=== PATIENT | male | born 1960 | race African-American/Black ===

== ENCOUNTER → 2016-04-06 | Outpatient (CLI) | payer OTHER ==
[2016-03-08 12:38] VITALS: BP 158/99
[~2016-04-06] MED LIST: ASPI81TA2 PO; LIRA0.6P2 SQ; METF500T4 PO
--- NOTE | 2016-04-06 10:24 | CARD ---
APPROVED REPORT EXAM: Two-dimensional and M-mode echocardiogram with Doppler and color Doppler. Other Information Quality : Good INDICATION Dyspnea 2D DIMENSIONS RVDd3.3 (2.9-3.5cm)Left Atrium(2D)4.4 (1.6-4.0cm) IVSd1.6 (0.7-1.1cm)Aortic Root(2D)3.0 (2.0-3.7cm) LVDd4.4 (3.9-5.9cm)LVOT Diameter2.2 (1.8-2.4cm) PWd1.3 (0.7-1.1cm)LVDs3.0 (2.5-4.0cm) FS (%) 32.0 %SV54.0 ml LVEF(%)60.3 (>50%) Aortic Valve AoV [place].108.9cm/sAoV VTI17.7cm AO Peak GR.4.7mmHgLVOT [place].90.8cm/s AO Mean GR.2mmHgAVA (VMAX)3.28cm2 SAVANNAH (VTI)3.70cm2 Mitral Valve MV E Lxtdeftd01.3cm/sMV DECEL QZTL344xr MV A Aauhjher62.2cm/sE/A Ratio1.5 Pulmonary Vein S1 Iimohyqn66.3cm/sD2 Mchopnjy26.5cm/s PVa nhokrcxd19ksws LEFT VENTRICLE The left ventricle is normal size. There is normal left ventricular wall thickness. The left ventricu lar systolic function is normal and the ejection fraction is within normal range. The Ejection Fracti on is 55-60%. There is normal LV segmental wall motion. Transmitral Doppler flow pattern is Grade I-a bnormal relaxation pattern. RIGHT VENTRICLE The right ventricle is normal size. The right ventricular systolic function is normal. ATRIA The left atrium is mildly dilated. The right atrium size is normal. The interatrial septum is intact with no evidence for an atrial septal defect or patent foramen ovale as noted on 2-D or Doppler imagi ng. AORTIC VALVE The aortic valve is normal in structure and function. Doppler and Color Flow revealed trace aortic re gurgitation. There is no significant aortic valvular stenosis. MITRAL VALVE The mitral valve is normal in structure and function. There is no evidence of mitral valve prolapse. There is no mitral valve stenosis. Doppler and Color Flow revealed no mitral valve regurgitation note d. TRICUSPID VALVE The tricuspid valve is normal in structure and function. Doppler and Color Flow revealed no tricuspid valve regurgitation noted. There is no tricuspid valve stenosis. PULMONIC VALVE Doppler and Color Flow revealed trace pulmonic valvular regurgitation. There is no pulmonic valvular stenosis. GREAT VESSELS The aortic root is normal in size. The ascending aorta is normal in size. The IVC was not visualized. PERICARDIAL EFFUSION There is no evidence of significant pericardial effusion. Critical Notification Critical Value: No <Conclusion> The left ventricular systolic function is normal and the ejection fraction is within normal range. Th e Ejection Fraction is 55-60%. There is normal LV segmental wall motion. Transmitral Doppler flow pattern is Grade I-abnormal relaxation pattern.
== END | disposition home or self-care (01) ==
LOC: ECHO 08:59
PROVIDERS: ATTEND Internal Medicine Cardiovascular Disease
DX: R06.09 Other forms of dyspnea (principal)
CPT/HCPCS: 93306

== ENCOUNTER 2016-04-16 06:19 | Outpatient (CLI) | payer OTHER ==
[2016-04-16] VITALS (11 sets, daily range): BP systolic 122–187; BP diastolic 74–108
[~2016-04-16] VITALS: Ht 185.4 cm; Wt 125.2 kg
[2016-04-16] MEDS ORDERED: LIDOCAINE 2% 20 ML VIAL. ONE (07:06)
[2016-04-16] MEDS ORDERED: HEPARIN for ARTERIAL LINE 1,500 ML ONE (07:06)
[2016-04-16] MEDS ORDERED: IODIXANOL 320 MG/ML 100 ML VIAL. ONE (07:06)
[2016-04-16 07:07] LABS: HEMATOCRIT 46.1 % (39.0-53.0); HEMOGLOBIN 15.8 g/dL (13.0-17.5); RED BLOOD COUNT 5.82 x10^6/uL (4.30-5.70); RED CELL DISTRIBUTION WIDTH 15.2 % (11.5-14.5)
[2016-04-16 07:18] LABS: INR 1.1 (0.8-1.1); PROTHROMBIN TIME PATIENT 13.9 SEC (11.7-14.0)
[2016-04-16 07:55] LABS: CALCIUM 8.2 mg/dL (8.5-10.1); CREATININE 1.3 mg/dL (0.7-1.3); GFR 69.1; POTASSIUM 3.7 mmol/L (3.5-5.1)
[2016-04-16] MEDS ORDERED: FENTANYL PF 250 MCG/5 ML VIAL. ONE (08:31)
[2016-04-16] MEDS ORDERED: MIDAZOLAM HCL/PF 5 MG/5 ML VIAL ONE (08:31)
[2016-04-16] MEDS ORDERED: VERAPAMIL 5 MG/2 ML VIAL. ONE (08:31)
[2016-04-16] MEDS ORDERED: NITROGLYCERIN 200 MCG/2 ML SYRINGE FOR CATH/VASC LAB. ONE (08:31)
[2016-04-16] MEDS ORDERED: HEPARIN for IV BOLUS 10,000 UNIT/10 ML VIAL. ONE (08:31)
[2016-04-16] MEDS ORDERED: CONTRAST GIVEN MC PRN (09:00)
[2016-04-16] MEDS ORDERED: MIDAZOLAM HCL/PF 5 MG/5 ML VIAL IV ONE (09:00)
[2016-04-16] MEDS ORDERED: FENTANYL PF 250 MCG/5 ML VIAL. IV ONE (09:00)
[2016-04-16] MEDS ORDERED: HEPARIN for IV BOLUS 10,000 UNIT/10 ML VIAL. IART ONE (09:00)
[2016-04-16] MEDS ORDERED: VERAPAMIL 5 MG/2 ML VIAL. IART ONE (09:00)
[2016-04-16] MEDS ORDERED: IODIXANOL 320 MG/ML 100 ML VIAL. IART ONE (09:00)
[2016-04-16] MEDS ORDERED: LIDOCAINE 2% 20 ML VIAL. IJ ONE (09:00)
[2016-04-16] MEDS ORDERED: NITROGLYCERIN 200 MCG/2 ML SYRINGE FOR CATH/VASC LAB. IART ONE (09:00)
[2016-04-16] MEDS ORDERED: IV 1/2 NORMAL SALINE 1,000 ML IV SCH (09:04)
--- NOTE | 2016-04-16 09:04 | PDOC ---
MODERATE SEDATION ASSESSMENT RISKS/ALTERNATIVES Risks/Alternatives Risks and alternatives of this type of sedation and procedure discussed with: RISK/ALTERNATIVES: Patient H & P ON CHART H & P H & P on chart and reviewed for co-morbid conditions and appropriate labs. H&P ON CHART: Yes STATUS PREG STATUS ASSESSED: N/A MEDS/ALLERGIES REVIEWED Meds/Allergies Reviewed Medications and Allergies including time and route of recently administered narcotics and sedatives. MEDS/ALLERGIES REVIEWED: Yes ASA RATING ASA RATING: II AIRWAY ASSESSMENT Airway Assessment Airway patency, oral function limitations, presence of caps, crowns, dentures, partials, and ability to extend neck assessed. AIRWAY ASSESSMENT: Yes MALLAMPATI SCORE MALLAMPATI SCORE: II PRE-SEDATION ASSESSMENT PRE-SEDATION ASSESSMENT: Yes SAYDA JOHNSON MD Apr 16, 2016 09:04
--- NOTE | 2016-04-16 09:18 | CARD ---
APPROVED REPORT Procedure(s) performed: Left heart catheterization, selective coronary angiography and left ventricul ography via the right transradial approach INDICATION The indication(s) include : Dyspnea on exertion and positive stress test concerning for unstable dimitrios na. PROCEDURE NARRATIVE After explaining the risks, benefits and alternative options, informed consent was obtained from surendra ent. Patient was brought to the cardiac Litigation Services Manager and right wrist was prepped and draped in the usual fashion after confirming a positive modified Wilfrid's test. Arterial access was obtained in the [facility] radial artery and a 6 [place] sheath was inserted. 6 [place] Jose catheter was used to perform chitra ective angiography of the left and right coronary arteries. 6 [place] pigtail catheter was used to pe rform left ventriculography. Patient tolerated the procedure well. Hemostasis was achieved using TR band. There were no immediate complications. The following findings were noted. FINDINGS 1. Hemodynamics: Left ventricular end-diastolic pressure of 11 mmHg. No pullback gradient across th e aortic valve. 2. Left ventriculography: Normal left ventricle systolic function with ejection fraction estimated at 65%. No significant mitral regurgitation seen. 3. Coronary angiography: a. The left main coronary artery arose from the left sinus of Valsalva, gave rise to the left anteri or descending and left circumflex arteries and did not show any significant stenosis. b. The left anterior descending artery did not show any significant stenosis. c. The left circumflex artery did not show any significant stenosis. d. The right coronary artery was a large and dominant vessel arising from the right sinus of Valsalv a that did not show any significant stenosis. Conclusion 1. No significant coronary artery disease 2. Normal left ventricle systolic function with ejection fraction estimated at 65% Recommendations Cardiac Risk Reduction Program
== END 2016-04-16 12:42 | disposition home or self-care (01) ==
LOC: CCL 06:19
PROVIDERS: ATTEND Internal Medicine Cardiovascular Disease
DX: I20.0 Unstable angina (principal); E78.00 Pure hypercholesterolemia, unspecified; I10 Essential (primary) hypertension
CPT/HCPCS: 36415; 80048; 85027; 85610; 85730; 93458; C1769; C1892; J2250; J3010; J3490

== ENCOUNTER → 2016-10-19 | Outpatient (CLI) | payer OTHER ==
[2016-04-16 11:44] VITALS: BP 129/74
[~2016-10-19] MED LIST changes: +ASPI-630 PO; -ASPI81TA2 PO
--- NOTE | 2016-10-20 16:51 | SLEEP ---
DATE OF STUDY: 10/19/2016 ATTENDING PHYSICIAN: Dr. Ravi Henriquez. OBJECTIVE: The patient is a 56-year-old female with a history of sleep apnea on a prior study done several years ago, here for CPAP titration. Date of study is 10/19/2016. Body mass index is 36. [place] sleep score 10. INTERPRETATION: Sleep architecture is characterized by sleep efficiency of 91% across the 6.8 hours of recording time. Stage volumes are appropriate for age. Sleep onset latency is 9 minutes. Respiratory monitoring shows a total of 83 events for an apnea-hypopnea index of 13.4 events per hour sleep. Minimum oxygen saturation is 89%. Treatment is initiated and excellent control of the respiratory events is achieved using 7 cm of CPAP Respironics medium DreamWear nasal pillows. No significant cardiac arrhythmias or periodic limb movements with sleep are observed. IMPRESSION: Abnormal polysomnogram showing obstructive sleep apnea and hypopnea treatable with the above settings. RECOMMENDATIONS: 1. The patient should be started on these settings. 2. Avoid sedatives and alcohol and pursue weight loss. Thank you for letting us help with the patient's care. GISELLE ORTIZ MD DR: NIYAH/madhu JOB#: [id number] / [id number] KIRSTEN Kureger MD
== END | disposition home or self-care (01) ==
LOC: SLPLAB 18:55
PROVIDERS: ATTEND Internal Medicine
DX: G47.30 Sleep apnea, unspecified (principal)
CPT/HCPCS: 95810

== ENCOUNTER → 2018-05-11 | Outpatient (CLI) | payer OTHER ==
[2016-04-16 11:44] VITALS: BP 129/74
[~2018-05-11] MED LIST changes: +METF500T16 PO; -METF500T4 PO
--- NOTE | 2018-05-11 09:11 | CARD ---
MR#: [id number] Date of Study: 05/11/2018 Ordering Physician: SAYDA JOHNSON, Referring Physician: SAYDA JOHNSON Tech: Mallorie Meyer RDCS APPROVED REPORT EXAM: Two-dimensional and M-mode echocardiogram with Doppler and color Doppler. Other Information Quality : GoodHR: 75bpm Rhythm : NSR INDICATION Hypertension/HCVD 2D DIMENSIONS RVDd3.1 (2.9-3.5cm)Left Atrium(2D)3.9 (1.6-4.0cm) IVSd1.5 (0.7-1.1cm)Aortic Root(2D)3.3 (2.0-3.7cm) LVDd3.9 (3.9-5.9cm)LVOT Diameter2.1 (1.8-2.4cm) PWd1.2 (0.7-1.1cm)LVDs2.4 (2.5-4.0cm) FS (%) 38.7 %SV46.4 ml LVEF(%)69.7 (>50%) M-Mode DIMENSIONS Left Atrium(MM)3.68 (2.5-4.0cm)Aortic Root3.37 (2.2-3.7cm) Aortic Valve AoV [place].100.3cm/sAoV VTI18.1cm AO Peak GR.4.0mmHgLVOT [place].77.6cm/s AO Mean GR.2mmHgAVA (VMAX)2.59cm2 SAVANNAH (VTI)2.60cm2 Mitral Valve MV E Tffpmcrs08.2cm/sMV DECEL SGEK494vf MV A Elvrzmfy26.5cm/sE/A Ratio1.5 MV A Stmkexeh955an Pulmonary Valve PV Peak Gqikieef219.4cm/s Tricuspid Valve TR P. Enqbdglw910fq/sRAP BDROMLDN3iuNs TR Peak Gr.9erAdXITA19sySu LEFT VENTRICLE The left ventricle is normal size. There is mild concentric left ventricular hypertrophy. The left ve ntricular systolic function is normal and the ejection fraction is within normal range. The Ejection Fraction is 60-65%. There is normal LV segmental wall motion. Transmitral Doppler flow pattern is Gra de II-pseudonormal filling dynamics. RIGHT VENTRICLE The right ventricle is normal size. There is normal right ventricular wall thickness. The right ventr icular systolic function is normal. ATRIA The left atrium size is normal. The right atrium size is normal. The interatrial septum is intact wit h no evidence for an atrial septal defect or patent foramen ovale as noted on 2-D or Doppler imaging. AORTIC VALVE The aortic valve is normal in structure and function. The aortic valve is trileaflet. Doppler and Col or Flow revealed no significant aortic regurgitation. There is no significant aortic valvular stenosi s. MITRAL VALVE The mitral valve is normal in structure and function. There is no evidence of mitral valve prolapse. There is no mitral valve stenosis. Doppler and Color Flow revealed no mitral valve regurgitation note d. TRICUSPID VALVE The tricuspid valve is normal in structure and function. Doppler and Color Flow revealed trace tricus pid regurgitation. The PA pressure was estimated at 12 mmHg. There is no tricuspid valve prolapse or vegetation. There is no tricuspid valve stenosis. PULMONIC VALVE Doppler and Color Flow revealed no pulmonic valvular regurgitation. There is no pulmonic valvular eloise nosis. GREAT VESSELS The aortic root is normal in size. The ascending aorta is normal in size. The IVC is normal in size a nd collapses >50% with inspiration. PERICARDIAL EFFUSION There is no evidence of significant pericardial effusion. Critical Notification Critical Value: No <Conclusion> The left ventricular systolic function is normal and the ejection fraction is within normal range. Th e Ejection Fraction is 60-65%. There is normal LV segmental wall motion. Signed by : Tung Aaron, Electronically Approved : 05/11/2018 09:11:18
== END | disposition home or self-care (01) ==
LOC: ECHO 08:06
PROVIDERS: ATTEND Internal Medicine Cardiovascular Disease
DX: I11.9 Hypertensive heart disease without heart failure (principal)
CPT/HCPCS: 93306

== ENCOUNTER → 2019-05-14 | Outpatient (CLI) | payer OTHER ==
[2016-04-16 11:44] VITALS: BP 129/74
--- NOTE | 2019-05-14 13:00 | CARD ---
MR#: [id number] Date of Study: 05/14/2019 Ordering Physician: SAYDA JOHNSON, Referring Physician: SAYDA JOHNSON, Tech: Celeste Saenz APPROVED REPORT EXAM: Two-dimensional and M-mode echocardiogram with Doppler and color Doppler. Other Information Quality : GoodHR: 74bpm INDICATION LV Function:Diastolic Chronic diastolic heart failure RISK FACTORS Hypertension Hyperlipidemia Diabetes 2D DIMENSIONS RVDd3.2 (2.9-3.5cm)Left Atrium(2D)3.6 (1.6-4.0cm) IVSd1.3 (0.7-1.1cm)Aortic Root(2D)3.2 (2.0-3.7cm) LVDd4.9 (3.9-5.9cm)LVOT Diameter2.2 (1.8-2.4cm) PWd1.1 (0.7-1.1cm)LVDs3.9 (2.5-4.0cm) FS (%) 20.5 %SV46.6 ml LVEF(%)41.8 (>50%) Aortic Valve AoV [place].121.7cm/sAoV VTI19.0cm AO Peak GR.5.9mmHgLVOT [place].98.5cm/s LVOT VTI 19.42cmAO Mean GR.3mmHg SAVANNAH (VMAX)2.57rj9XLV (VTI)3.88cm2 Mitral Valve MV E Rbxmryog98.5cm/sMV DECEL NZMD339ay MV A Dxfoakxm29.6cm/sMV E Mean Gr.1mmHg MV IEM62ygO/A Ratio1.3 MVA (PHT)4.99cm2 TDI E/Lateral E'7.4E/Medial E'8.2 Pulmonary Valve PV Peak Hcllbpeg26.0cm/sPV Peak Grad.3mmHg Tricuspid Valve TR P. Quxzprky696hz/sRAP TTURBIQG9yvVa TR Peak Gr.12kfIeMYJI65lpZf Pulmonary Vein S1 Iceqfmhe39.7cm/sD2 Djbbltbu48.9cm/s PVa bqbotnze019mtef LEFT VENTRICLE The left ventricle is normal size. There is mild concentric left ventricular hypertrophy. The left ve ntricular systolic function is normal and the ejection fraction is within normal range. The Ejection Fraction is 50-55%. There is normal LV segmental wall motion. Transmitral Doppler flow pattern is Gra de II-pseudonormal filling dynamics. RIGHT VENTRICLE The right ventricle is borderline dilated. The right ventricle is mildly hypertrophied. The right niraj tricular systolic function is normal. ATRIA The left atrium size is normal. The right atrium size is normal. The interatrial septum is intact wit h no evidence for an atrial septal defect or patent foramen ovale as noted on 2-D or Doppler imaging. AORTIC VALVE The aortic valve is normal in structure and function. Doppler and Color Flow revealed no significant aortic regurgitation. There is no significant aortic valvular stenosis. MITRAL VALVE The mitral valve is normal in structure and function. There is no evidence of mitral valve prolapse. There is no mitral valve stenosis. Doppler and Color-flow revealed trace mitral regurgitation. TRICUSPID VALVE The tricuspid valve is normal in structure and function. Doppler and Color Flow revealed trace tricus pid regurgitation with an estimated PAP of 25 mmHg. There is no tricuspid valve stenosis. PULMONIC VALVE The pulmonic valve is not well visualized. Doppler and Color Flow revealed no pulmonic valvular regur gitation. There is no pulmonic valvular stenosis. GREAT VESSELS The aortic root is normal in size. The ascending aorta is normal in size. The IVC was not visualized. PERICARDIAL EFFUSION There is no evidence of significant pericardial effusion. Critical Notification Critical Value: No <Conclusion> The left ventricular systolic function is normal and the ejection fraction is within normal range. Th e Ejection Fraction is 50-55%. There is normal LV segmental wall motion. Signed by : Tung Aaron, Electronically Approved : 05/14/2019 12:59:49
== END | disposition home or self-care (01) ==
LOC: ECHO 07:48
PROVIDERS: ATTEND Internal Medicine Cardiovascular Disease
DX: I50.32 Chronic diastolic (congestive) heart failure (principal); I51.7 Cardiomegaly
CPT/HCPCS: 93306

== ENCOUNTER → 2020-06-04 | Outpatient (CLI) | payer OTHER ==
[2016-04-16 11:44] VITALS: BP 129/74
--- NOTE | 2020-06-04 14:09 | CARD ---
MR#: [id number] Date of Study: 06/04/2020 Ordering Physician: SAYDA JOHNSON, Referring Physician: SAYDA JOHNSON, Tech: Celeste Saenz [facility] APPROVED REPORT EXAM: Two-dimensional and M-mode echocardiogram with Doppler and color Doppler. Other Information Quality : GoodHR: 75bpm INDICATION LV Function:Diastolic Congestive Heart Failure RISK FACTORS Hypertension Hyperlipidemia Diabetes 2D DIMENSIONS RVDd3.8 (2.9-3.5cm)Left Atrium(2D)3.8 (1.6-4.0cm) IVSd1.2 (0.7-1.1cm)Aortic Root(2D)3.5 (2.0-3.7cm) LVDd4.9 (3.9-5.9cm)LVOT Diameter2.1 (1.8-2.4cm) PWd1.1 (0.7-1.1cm)LVDs3.3 (2.5-4.0cm) FS (%) 32.6 %SV67.9 ml LVEF(%)60.8 (>50%) Aortic Valve AoV [place].121.4cm/sAoV VTI21.1cm AO Peak GR.5.9mmHgLVOT [place].100.4cm/s LVOT VTI 18.98cmAO Mean GR.3mmHg SAVANNAH (VMAX)2.82ep9RVH (VTI)3.25cm2 Mitral Valve MV E Zjvityux89.1cm/sMV DECEL NBYQ112ce MV A Piuixhxz88.5cm/sMV QQD82xs E/A Ratio1.1MVA (PHT)3.44cm2 TDI E/Lateral E'4.9E/Medial E'6.6 Pulmonary Valve PV Peak Klixeeuz211.3cm/sPV Peak Grad.5mmHg Tricuspid Valve TR P. Wiptomcp048jn/sRAP WQAIMFLK3frMh TR Peak Gr.12zfFnYXCH92unUo Pulmonary Vein S1 Wtaqmwkd27.3cm/sD2 Ahmmykiq01.3cm/s PVa mjygkozj832cjib LEFT VENTRICLE The left ventricle is normal size. There is borderline concentric left ventricular hypertrophy. The l eft ventricular systolic function is normal and the ejection fraction is within normal range. The Eje ction Fraction is 55-60%. There is normal LV segmental wall motion. Transmitral Doppler flow pattern is Grade II-pseudonormal filling dynamics. RIGHT VENTRICLE The right ventricle is normal size. There is normal right ventricular wall thickness. The right ventr icular systolic function is normal. ATRIA The left atrium size is normal. The right atrium size is normal. The interatrial septum is intact wit h no evidence for an atrial septal defect or patent foramen ovale as noted on 2-D or Doppler imaging. AORTIC VALVE The aortic valve is normal in structure and function. Doppler and Color Flow revealed no significant aortic regurgitation. There is no significant aortic valvular stenosis. Calculated aortic valve area is 3.26 cm2 with maximum pressure gradient of 9 mmHg and mean pressure gradient of 5 mmHg. MITRAL VALVE The mitral valve is normal in structure and function. There is no evidence of mitral valve prolapse. There is no mitral valve stenosis. Doppler and Color-flow revealed trace mitral regurgitation. TRICUSPID VALVE The tricuspid valve is normal in structure and function. Doppler and Color Flow revealed trace tricus pid regurgitation with an estimated PAP of 24 mmHg. There is no tricuspid valve stenosis. PULMONIC VALVE The pulmonic valve is not well visualized. Doppler and Color Flow revealed trace pulmonic valvular re gurgitation. GREAT VESSELS The aortic root is normal in size. The ascending aorta is normal in size. The IVC was not visualized. PERICARDIAL EFFUSION There is no evidence of significant pericardial effusion. Critical Notification Critical Value: No <Conclusion> The left ventricle is normal size. The left ventricular systolic function is normal and the ejection fraction is within normal range. The Ejection Fraction is 55-60%. There is borderline concentric left ventricular hypertrophy. Doppler and Color Flow revealed no significant aortic regurgitation. There is no significant aortic valvular stenosis. Doppler and Color-flow revealed trace mitral regurgitation. Doppler and Color Flow revealed trace tricuspid regurgitation with an estimated PAP of 24 mmHg. Signed by : Alek Narayanan MD Electronically Approved : 06/04/2020 14:09:25
--- NOTE | 2020-06-04 14:24 | RAD ---
MR#: [id number] Date of Study: 06/04/2020 Ordering Physician: SAYDA JOHNSON, Referring Physician: NAREN HEREDIA Tech: Antonieta Fontenot, RT (R) (N) APPROVED REPORT Test Type: Exercise Stress Nurse/Tech: Fidel Renae RN Test Indications: Chronic diastolic heart failure Cardiac History: Heart Cath, HTN, See EMR. Medications: Insulin, see EMR. Medical History: Asthma, see EMR. Resting ECG: SR Resting Heart Rate: 70 bpm Resting Blood Pressure: 127/74mmHg Pretest Chest Pain: No chest pain Nurse/Tech Notes Lungs CTA, Heart tones regular. Consent: The procedure was explained to the patient in lay terms. Informed consent was witnessed. Robin eout was entered into [employer]. History and Stress Test performed by ALLEY Browne, BRENDA (R) (N) Stress Symptoms Dyspnea POST EXERCISE Reason for Termination: Reached target heart rate Target HR: Yes Max HR: 144 bpm 90% of Maximum Predicted HR: 160 bpm Exercise duration: 7:45 min:sec, 3 Stage Exercise capacity: 10.0METs Max Blood Pressure: 193/89mmHg Blood Pressure response to exercise: Normal blood pressure response during stress. Heart Rate response to exercise: WNL Chest Pain: No. Arrhythmia: Yes. PVCs toward the end of exercise and during rest. INTERPRETATION Stress EKG Conclusion: The resting EKG shows a sinus rhythm. The stress EKG shows mild nonspecific ST segment changes that are not diagnostic for ischemia. No EKG evidence of stress-induced ischemia. Imaging Protocol IMAGE PROTOCOL: Rest Tc-99m/stress Tc-99m 1 day Rest: Stress: Viability: Radiopharm.Tc99m OsychjksjDc96k Sestamibi Xvqk50jLd 31mCi Duration 15min. 10min. Img Date 06/04/2020 06/04/2020 Inj-Img Oidb92gge. 60min. Rest Admin Site:IV - Right AntecubitalAdministrator:ALLEY Browne ARRT (R)(N) Stress Admin Site: IV - Right AntecubitalAdministrator: Marline Navarrete, NMTCB, ARRT (R)(N) STRESS DATA End Diast. Vol.94.0mlAv. Heart Rate82.0bpm End Syst. Vol.27.0mlCO Index BSA0.0L/min Myocardial Omek118.0gEject. Bdaodctp77.0% Stress Rates Pk. Fill Rate3.23EDV/secLVtime Pk. Fill 209.94msec Pk. Empty Rate4.30ESV/secLVtime Pk. Szzpq610.24msec 03/30 Pk. Fill1.60EDV/sec Stress Scores Regional WT0.00Summed WT7.00 Regional WM0.00Summed WM0.00 LV Perfusion The stress scans showed no significant defects. The rest scans showed no significant defects. Nuclear imaging shows no reversible ischemia or infarct. Wall Motion Normal left ventricular systolic function with an ejection fraction of 68%. LV Perf. Quant 17 Seg. SSS0.00 17 Seg. SRS0.00 17 Seg. SDS0.00 Stress Defect Extent (% LAD)0.00Rest Defect Extent (% LAD)0.00Rev. Defect Extent (% LAD)0.00 Stress Defect Extent (% LCX) 0.00Rest Defect Extent (% LCX)0.00Rev. Defect Extent (% LCX)0.00 Stress Defect Extent (% RCA)0.00Rest Defect Extent (% RCA)0.00Rev. Defect Extent (% RCA)0.00 Stress Defect Extent (% [place])0.00Rest Defect Extent (% [place])0.00Rev. Defect Extent (% [place])0.00 Conclusion 1. Good exercise tolerance with the patient walking for 7 minutes and 45 seconds on a Vinny protocol. 2. No reported chest pain with exertion. 3. No EKG evidence of stress-induced ischemia. 4. Nuclear imaging shows no reversible ischemia or infarct. 5. Intact LV systolic function with an ejection fraction of 68%. 6. Low risk treadmill nuclear stress test. Signed by : Alek Narayanan MD Electronically Approved : 06/04/2020 14:23:39
== END ==
LOC: NM 09:36
PROVIDERS: ATTEND Internal Medicine Cardiovascular Disease
DX: I11.0 Hypertensive heart disease with heart failure (principal)
CPT/HCPCS: 78452; 93017; 93306; A9500

== ENCOUNTER → 2021-07-13 | Outpatient (CLI) | payer OTHER ==
[2016-04-16 11:44] VITALS: BP 129/74
--- NOTE | 2021-07-14 17:58 | CARD ---
MR#: [id number] Date of Study: 07/13/2021 Ordering Physician: SAYDA JOHNSON, Referring Physician: SAYDA JOHNSON Tech: Aaliyah Garcia [facility] APPROVED REPORT EXAM: Two-dimensional and M-mode echocardiogram with Doppler and color Doppler. Other Information Quality : AverageHR: 75bpm Rhythm : NSR INDICATION RISK FACTORS Hypertension Obesity Hyperlipidemia Diabetes 2D DIMENSIONS RVDd3.6 (2.9-3.5cm)Left Atrium(2D)3.1 (1.6-4.0cm) IVSd1.1 (0.7-1.1cm)Aortic Root(2D)3.2 (2.0-3.7cm) LVDd3.9 (3.9-5.9cm)LVOT Diameter2.2 (1.8-2.4cm) PWd1.1 (0.7-1.1cm)LVDs2.3 (2.5-4.0cm) FS (%) 42.2 %SV49.5 ml Aortic Valve AoV [place].131.9cm/sAoV VTI26.2cm AO Peak GR.7.0mmHgLVOT [place].96.3cm/s AO Mean GR.3mmHgAVA (VMAX)2.74cm2 Mitral Valve MV E Kzijtsls45.1cm/sMV DECEL PGBJ996zi MV A Xvcswiux95.3cm/sE/A Ratio1.3 Pulmonary Valve PV Peak Qjageugh13.2cm/s Tricuspid Valve TR P. Kpqriyln763kj/sTR Peak Gr.16mmHg LEFT VENTRICLE The left ventricle is normal size. There is borderline concentric left ventricular hypertrophy. The l eft ventricular systolic function is normal and the ejection fraction is within normal range. LV eje ction fraction of 55 to 60%. There is normal LV segmental wall motion. The left ventricular diastolic function and filling is normal for age. RIGHT VENTRICLE The right ventricle is normal size. There is normal right ventricular wall thickness. The right ventr icular systolic function is normal. ATRIA The left atrium size is normal. The right atrium size is normal. The interatrial septum is intact wit h no evidence for an atrial septal defect or patent foramen ovale as noted on 2-D or Doppler imaging. AORTIC VALVE The aortic valve is normal in structure and function. Doppler and Color Flow revealed no significant aortic regurgitation. There is no significant aortic valvular stenosis. MITRAL VALVE The mitral valve is normal in structure and function. There is no evidence of mitral valve prolapse. There is no mitral valve stenosis. Doppler and Color-flow revealed trace mitral regurgitation. TRICUSPID VALVE The tricuspid valve is normal in structure and function. Doppler and Color Flow revealed trace tricus pid regurgitation. Estimated PAP 20 mmHg. There is no tricuspid valve stenosis. PULMONIC VALVE The pulmonary valve is normal in structure and function. Doppler and Color Flow revealed no pulmonic valvular regurgitation. GREAT VESSELS The aortic root is normal in size. The ascending aorta is normal in size. The IVC is normal in size a nd collapses >50% with inspiration. PERICARDIAL EFFUSION There is no evidence of significant pericardial effusion. Critical Notification Critical Value: No <Conclusion> The left ventricle is normal size. The left ventricular systolic function is normal and the ejection fraction is within normal range. LV ejection fraction of 55 to 60%. There is borderline concentric left ventricular hypertrophy. Doppler and Color Flow revealed no significant aortic regurgitation. There is no significant aortic valvular stenosis. Doppler and Color-flow revealed trace mitral regurgitation. Doppler and Color Flow revealed trace tricuspid regurgitation. Estimated PAP 20 mmHg. Signed by : Alek Narayanan MD Electronically Approved : 07/14/2021 17:57:45
== END ==
LOC: ECHO 08:15
PROVIDERS: ATTEND Internal Medicine Cardiovascular Disease
DX: I50.32 Chronic diastolic (congestive) heart failure (principal)
CPT/HCPCS: 93306; C8929